=== PATIENT | male | born 1955 | race African-American/Black ===

== ENCOUNTER 2021-06-07 08:29 | Inpatient (IN) | payer MEDICAID ==
[~2021-06-07] VITALS: Ht 182.9 cm; Wt 114.0 kg
[~2021-06-07 08:29] MED LIST: DICY20TA11 MT
[2021-06-07 09:13] LABS: BASOPHILS % 0.6 % (0.0-2.0); EOSINOPHILS % 1.9 % (0.0-5.0); HEMATOCRIT. 38.2 % (42.0-52.0); HEMOGLOBIN. 12.5 g/dL (14.0-18.0); LYMPHOCYTES % 13.8 % (20.0-50.0); MEAN CORPUSCULAR HEMOGLOBIN 27.5 pg (28.0-32.0); MEAN CORPUSCULAR VOLUME 83.7 fL (80.0-94.0); MONOCYTES % 7.3 % (2.0-8.0); NEUTROPHILS % 76.4 % (40.0-76.0); PLATELET 365 x1000/uL (130-400); RED BLOOD CELL COUNT 4.56 mill/uL (4.7-6.1); RED CELL DISTRIBUTION WIDTH 16.2 % (11.6-14.6)
[2021-06-07 09:21] LABS: CHLORIDE 110 mEq/L (98-107)
[2021-06-07 09:23] LABS: PROTHROMBIN TIME 11.1 sec (9.6-11.0)
[2021-06-07 09:26] LABS: ETHANOL BLOOD < 10 mg/dL
[2021-06-07 09:30] LABS: CREATINE KINASE 446 IU/L (39-308)
[2021-06-07] MEDS ORDERED: HALOPERIDOL LACTATE 5MG/ML VIAL IM ONE ×2 (10:00→15:15)
[2021-06-07] MEDS ORDERED: LORAZEPAM 2MG/ML CPJ IM PRN (10:00)
[2021-06-07] MEDS ORDERED: LACTULOSE 20G/30ML UDC PO ONE (10:30)
[2021-06-07] MEDS ORDERED: CEFTRIAXONE 2 G PREMIX 50 ML IV ONE (10:30)
[2021-06-07] MEDS ORDERED: POTASSIUM CHLORIDE INJ 30 MEQ in DEXT 5%/0.9% NACL 1,000 ML IV ONE (10:30)
[2021-06-07 12:25] LABS: CLARITY URINE CLEAR (CLEAR); COLOR URINE YELLOW (YELLOW); KETONES URINE NEGATIVE (NEGATIVE); LEUKOCYTE ESTERASE URINE NEGATIVE (NEGATIVE); NITRITE URINE NEGATIVE (NEGATIVE); OCCULT BLOOD URINE NEGATIVE (NEGATIVE); PH URINE 7.5 (4.5-8.0); PROTEIN URINE NEGATIVE (NEGATIVE); SPECIFIC GRAVITY URINE 1.007 (1.005-1.030); UROBILINOGEN URINE 0.2 E.U./dL (0.2-1.0)
[2021-06-07] MEDS ORDERED: LORAZEPAM 2MG/ML CPJ IV ONE (13:00)
[2021-06-07] MEDS ORDERED: HALOPERIDOL 5MG TABLET PO ONE (13:00)
[2021-06-07] MEDS ORDERED: ONDANSETRON HCL 4MG/2ML INJ IV PRN (15:15)
[2021-06-07] MEDS ORDERED: GUAIFENESIN 200MG/10ML SUGAR FREE UDC PO PRN (15:15)
[2021-06-07] MEDS ORDERED: MAGNESIUM/ALUMINUM HYDROXIDE/SIMETHICONE 30ML UDC PO PRN (15:15)
[2021-06-07] MEDS ORDERED: KETOROLAC 15MG/ML VIAL IV PRN (15:15)
[2021-06-07] MEDS ORDERED: HALOPERIDOL LACTATE 5MG/ML VIAL IM PRN (15:15)
[2021-06-07] MEDS ORDERED: DOCUSATE SODIUM 100MG CAPSULE PO PRN (15:15)
[2021-06-07] MEDS ORDERED: IPRATROPIUM/ALBUTEROL 0.5-3(2.5)MG/3ML NEB NEB PRN (15:15)
[2021-06-07] MEDS ORDERED: ACETAMINOPHEN 325MG TABLET PO PRN ×2 (15:15)
[2021-06-07] MEDS ORDERED: CLONIDINE 0.1MG TABLET PO PRN (15:15)
[2021-06-07] MEDS ORDERED: ENOXAPARIN 40MG/0.4ML SYR SUBCUT SCH (15:15)
[2021-06-07] MEDS ORDERED: NITROGLYCERIN 0.4MG TABLET SL SL PRN (15:15)
[2021-06-07] MEDS ORDERED: CEFTRIAXONE 1,000 MG in DEXTROSE 5% WATER 50 ML IV SCH (15:30)
[2021-06-07] MEDS ORDERED: AZITHROMYCIN 500 MG in DEXT 5% WATER 250 ML IV SCH (16:00)
[2021-06-07] MEDS: AMLODIPINE 10MG TABLET PO SCH (16:31)
[2021-06-07] MEDS ORDERED: DEXTROSE 50% WATER 50ML SYRINGE IV PRN (18:00)
[2021-06-07 18:09] LABS: T4 FREE 1.12 ng/dL (0.76-1.46)
[2021-06-07] MEDS: ENOXAPARIN 30MG/0.3ML SYR SUBCUT SCH (18:34)
[2021-06-07 18:57] LABS: FOLIC ACID (FOLATE) SERUM 8.4 ng/mL (>5.38)
[2021-06-07] MEDS ORDERED: ZOLPIDEM TARTRATE 5MG TABLET PO PRN (21:00)
[2021-06-07] MEDS: BLOOD SUGAR DIAGNOSTIC STRIP TEST SCH (22:54)
[2021-06-07] MEDS: INSULIN LISPRO 100 UNITS/ML SUBCUT SCH (22:55)
[2021-06-07] MEDS: FAMOTIDINE 20MG TABLET PO SCH (22:58)
[2021-06-07] MEDS: ASCORBIC ACID 500 MG TABLET PO SCH (22:58)
[2021-06-07 23:24] LABS: CREATINE KINASE 550 IU/L (39-308)
[2021-06-07 23:25] LABS: CREATINE KINASE MB FRACTION 6.3 ng/mL (0.5-3.6)
[2021-06-08 04:39] LABS: BASOPHILS % 0.4 % (0.0-2.0); EOSINOPHILS % 2.8 % (0.0-5.0); HEMATOCRIT. 36.9 % (42.0-52.0); HEMOGLOBIN. 12.2 g/dL (14.0-18.0); MEAN CORPUSCULAR HEMOGLOBIN 27.7 pg (28.0-32.0); MEAN CORPUSCULAR VOLUME 83.8 fL (80.0-94.0); MEAN PLATELET VOLUME 7.8 fl (7.4-10.4); NEUTROPHILS % 75.8 % (40.0-76.0); PLATELET 433 x1000/uL (130-400); RED CELL DISTRIBUTION WIDTH 15.8 % (11.6-14.6)
[2021-06-08 04:46] LABS: CHLORIDE 106 mEq/L (98-107)
[2021-06-08 04:53] LABS: PHOSPHORUS 2.4 mg/dL (2.5-4.9)
[2021-06-08 05:05] LABS: CREATINE KINASE 466 IU/L (39-308)
[2021-06-08 05:06] LABS: CREATINE KINASE MB FRACTION 5.6 ng/mL (0.5-3.6)
[2021-06-08] MEDS: BLOOD SUGAR DIAGNOSTIC STRIP TEST SCH (08:25)
[2021-06-08] MEDS: ENOXAPARIN 30MG/0.3ML SYR SUBCUT SCH (08:25)
[2021-06-08] MEDS: INSULIN LISPRO 100 UNITS/ML SUBCUT SCH (08:44)
[2021-06-08] MEDS: ASCORBIC ACID 500 MG TABLET PO SCH (08:44)
[2021-06-08] MEDS: FAMOTIDINE 20MG TABLET PO SCH (08:45)
[2021-06-08] MEDS: AMLODIPINE 10MG TABLET PO SCH (08:45)
[2021-06-08] MEDS ORDERED: ASPIRIN 325MG EC TABLET PO SCH (09:00)
[2021-06-08] MEDS ORDERED: CHOLECALCIFEROL (D3) 1000 UNIT TABLET PO SCH (09:00)
[2021-06-08] MEDS ORDERED: ZINC SULFATE 220 MG ( 50 ) CAPSULE PO SCH (09:00)
[2021-06-08] MEDS ORDERED: CEFTRIAXONE 1 G PREMIX 50 ML IV SCH (09:00)
[2021-06-08 12:02] VITALS: BP 166/99
[2021-06-08 15:38] LABS: *AMPHETAMINES SCREEN URINE NEGATIVE (NEGATIVE); *BARBITURATES SCREEN URINE NEGATIVE (NEGATIVE); *BENZODIAZEPINES SCREEN URINE PRESUMTIVE POSITIVE (NEGATIVE); *COCAINE SCREEN URINE NEGATIVE (NEGATIVE); METHADONE URINE SCREEN NEGATIVE (NEGATIVE); OPIATES URINE SCREEN NEGATIVE (NEGATIVE)
[2021-06-08 15:39] LABS: CANNABINOID URINE SCREEN NEGATIVE (NEGATIVE); PHENCYCLIDINE URINE SCREEN NEGATIVE (NEGATIVE)
== END 2021-06-08 12:18 | disposition left against medical advice (07) | DRG 720 ==
LOC: ER 08:29 → MICUSO 11:38
PROVIDERS: ADMIT Internal Medicine; ATTEND Internal Medicine
DX: A41.9 Sepsis, unspecified organism (principal); G92 Toxic encephalopathy; E44.0 Moderate protein-calorie malnutrition; D63.8 Anemia in other chronic diseases classified elsewhere; E11.9 Type 2 diabetes mellitus without complications; E66.9 Obesity, unspecified; E87.6 Hypokalemia; I10 Essential (primary) hypertension; K72.90 Hepatic failure, unspecified without coma; N39.0 Urinary tract infection, site not specified; R65.20 Severe sepsis without septic shock; Z82.49 Family history of ischemic heart disease and other diseases of the circulatory system; Z86.73 Personal history of transient ischemic attack (TIA), and cerebral infarction without residual deficits; Z79.899 Other long term (current) drug therapy; Z68.34 Body mass index [BMI] 34.0-34.9, adult
CPT/HCPCS: 36415; 71045; 80053; 80061; 80305; 80307; 80320; 80329; 81003; 82140; 82550; 82553; 82607; 82746; 82962; 83036; 83540; 83550; 83605; 83615; 83735; 83880; 84100; 84145; 84439; 84443; 84484; 85025; 85379; 86850; 86900; 93005; 93970; 99291; J0456; J0696; J1630; J1650; J1815; J2060; J3480; J7042; J7060; G0480